=== PATIENT | male | born 1960 | race Caucasian/White ===

== ENCOUNTER → 2018-01-19 | Emergency (ER) | payer OTHER ==
[~2018-01-19] VITALS: Ht 175.3 cm; Wt 117.9 kg
[~2018-01-19] MED LIST: AMBIEN10 MG PO; CLARITHROMYCIN500 MG PO; CLONAZEPAM0.5 MG PO; KETO10TA2 PO; TAMS0.4C PO; URIN D.S. TABLE1 TAB PO; ZOLOFT50 MG PO
== END | disposition home or self-care (01) ==
LOC: ER 22:39
DX: S60.351A Superficial foreign body of right thumb, initial encounter (principal); W45.8XXA Other foreign body or object entering through skin, initial encounter; Y93.89 Activity, other specified; Y92.89 Other specified places as the place of occurrence of the external cause; Y99.8 Other external cause status

== ENCOUNTER 2019-11-24 07:46 | Emergency (ER) | payer OTHER ==
[~2019-11-24] VITALS: Ht 177.8 cm; Wt 102.1 kg
[2019-11-24] MEDS ORDERED: TUSSI PRES-B L480 ML (08:21)
[2019-11-24] MEDS ORDERED: PROAIR HFA8.5 GM (08:22)
== END 2019-11-24 11:02 | disposition home or self-care (01) ==
LOC: ER 07:46
DX: J40 Bronchitis, not specified as acute or chronic (principal)

== ENCOUNTER 2024-05-02 14:39 | Outpatient (CLI) | payer OTHER ==
[~2024-05-02 14:39] MED LIST changes: +PROAIR HFA8.5 GM; +TUSSI PRES-B L480 ML
== END 2024-05-02 15:38 | disposition home or self-care (01) ==
LOC: RAD 14:39
PROVIDERS: ATTEND Orthopaedic Surgery
DX: M25.562 Pain in left knee (principal); M23.8X2 Other internal derangements of left knee